=== PATIENT | male | born 1995 | race Caucasian/White ===

== ENCOUNTER 2025-01-03 14:48 | Emergency (ER) | payer MEDICAID ==
[~2025-01-03] VITALS: Ht 182.9 cm; Wt 83.9 kg
[2025-01-03 15:23] LABS: *BILIRUBIN,URIN NEGATIVE (NEGATIVE); *CLARITY,URINE CLEAR (CLEAR); *COLOR,URINE YELLOW (YELLOW); *KETONES,URINE NEGATIVE (NEGATIVE); *PROTEIN,URINE NEGATIVE (NEGATIVE); *UROBILINOGEN,URINE 0.2 E.U./dl (NORMAL); LEUKOCYTE ESTERASE ,URINE NEGATIVE (NEGATIVE); NITRITE, URINE NEGATIVE (NEGATIVE); UGLUCOSE NEGATIVE (NEGATIVE)
[2025-01-03 15:24] LABS: *BLOOD, URINE TRACE (NEGATIVE)
[2025-01-03 15:33] LABS: SQUAMOUS EPITHELIAL CELL,UR FEW /HPF (NONE SEEN); WBC,URINE 0-3 /HPF (0-3)
[2025-01-03] MEDS ORDERED: DOXY100C5 PO (16:58)
[2025-01-03 17:21] VITALS: BP 122/69; O2SAT 100
== END 2025-01-03 17:29 | disposition home or self-care (01) ==
LOC: ER 14:48
DX: R31.9 Hematuria, unspecified (principal); R35.0 Frequency of micturition; R30.0 Dysuria; N50.811 Right testicular pain
CPT/HCPCS: 76870; A4606; A4663